=== PATIENT | male | born 1985 | race Caucasian/White ===

== ENCOUNTER 2018-09-10 13:57 | Emergency (ER) | payer SELFPAY ==
[2018-09-10] MEDS ORDERED: methylPREDNISolone Sod Succ/PF 125 MG/2 ML VIAL ONE (14:35)
[2018-09-10] MEDS ORDERED: Ibuprofen 800 MG TAB ONE (14:44)
== END 2018-09-10 14:45 | disposition home or self-care (01) ==
LOC: MADERS 13:57
DX: L40.9 Psoriasis, unspecified (principal); M06.9 Rheumatoid arthritis, unspecified
CPT/HCPCS: 96372; J2930

== ENCOUNTER 2019-01-27 08:38 | Emergency (ER) | payer SELFPAY | END 2019-01-27 09:38 | disposition home or self-care (01) | LOC: MADERS 08:38 | DX: S80.11XA Contusion of right lower leg, initial encounter (principal); M06.9 Rheumatoid arthritis, unspecified; Z79.899 Other long term (current) drug therapy; W45.0XXA Nail entering through skin, initial encounter | CPT/HCPCS: 99281 ==